=== PATIENT | female | born 1960 | race Caucasian/White ===

== ENCOUNTER 2023-05-15 19:17 | Emergency (ER) | payer BC, OTHER ==
[2023-05-15 19:41] LABS: APPEARANCE,URINE TURBID; BILIRUBIN,URINE NEGATIVE (NEGATIVE); COLOR,URINE YELLOW; GLUCOSE,URINE NEGATIVE (NEGATIVE); KETONES,URINE TRACE mg/dL (NEGATIVE); LEUKOCYTE ESTERASE,URINE SMALL (NEGATIVE); NITRITE,URINE NEGATIVE (NEGATIVE); OCCULT BLOOD,URINE MODERATE (NEGATIVE); PH,URINE 5.5 (5.0-9.0); PROTEIN,URINE NEGATIVE (NEGATIVE); UROBILINOGEN,URINE 0.2 E.U./dL (0.2-1.0)
[2023-05-15 19:54] LABS: BASOPHILS ABSOLUTE AUTO 0.02 K/uL (0.00-0.20); BASOPHILS PERCENT AUTO 0.2 % (0.0-2.0); EOSINOPHILS ABSOLUTE AUTO 0.01 K/uL (0.00-0.50); EOSINOPHILS PERCENT AUTO 0.1 % (0.0-5.0); HEMATOCRIT 36.8 % (34.0-46.0); HEMOGLOBIN 12.2 g/dL (11.7-15.5); LYMPHOCYTES ABSOLUTE AUTO 1.77 K/uL (0.50-3.50); LYMPHOCYTES PERCENT AUTO 14.7 % (10.0-50.0); MEAN CORPUSCULAR HEMOGLOBIN 29.7 pg (28.2-33.3); MEAN CORPUSCULAR HGB CONC 33.2 g/dL (31.7-36.0); MEAN CORPUSCULAR VOLUME 89.5 fL (84.0-98.0); MONOCYTES ABSOLUTE AUTO 0.93 K/uL (0.00-1.00); MONOCYTES PERCENT AUTO 7.7 % (2.0-14.0); NEUTROPHILS ABSOLUTE AUTO 9.28 K/uL (1.40-7.00); NEUTROPHILS PERCENT AUTO 77.3 % (45.0-80.0); PLATELET COUNT,PLT 288 K/uL (150-350); RED BLOOD CELL COUNT 4.11 M/uL (3.77-5.09); RED CELL DISTRIBUTION WIDTH 13.6 % (11.2-14.1)
[2023-05-15 20:00] LABS: EPITHELIAL CELLS,URINE MANY /LPF
[2023-05-15] MEDS ORDERED: Sodium Chloride 0.9% 1,000 ML IV ONE (20:05)
[2023-05-15] MEDS ORDERED: Sodium Chloride 0.9% 10 ML Syringe FLUSH PRN (20:05)
[2023-05-15] MEDS ORDERED: Ondansetron 4 MG/2 ML SDV IVPUSH ONE (20:05)
[2023-05-15] MEDS ORDERED: Morphine 2 MG/ML SYRINGE IVPUSH ONE ×2 (20:05→22:07)
[2023-05-15 20:09] LABS: ALANINE AMINOTRANSFERASE,ALT 28 U/L (12-78); ALBUMIN 3.6 g/dL (3.4-5.0); ALKALINE PHOSPHATASE 76 IU/L (46-116); ANION GAP 8.2 meq/L (7-15); ASPARTATE AMNIOTRANSFERASE,AST 18 U/L (15-37); BILIRUBIN TOTAL 0.6 mg/dL (0.2-1.0); BLOOD UREA NITROGEN,BUN 11 mg/dL (7-18); CALCIUM 8.8 mg/dL (8.5-10.1); CARBON DIOXIDE,CO2 27.8 mmol/L (21.0-32.0); CHLORIDE,CL 101 mmol/L (98-107); GLUCOSE RANDOM 133 mg/dL (70-99); POTASSIUM,K 3.8 mmol/L (3.5-5.1); PROTEIN TOTAL,TP 7.7 g/dL (6.4-8.2); SODIUM,NA 137 mmol/L (136-145)
[2023-05-15 20:12] LABS: ESTIMATED GFR 63 mL/min (>=60)
[2023-05-15] MEDS ORDERED: cefTRIAXone 2 GM Vial IVPUSH ONE (21:36)
[2023-05-15] MEDS ORDERED: metroNIDAZOLE/Normal Saline 500 MG in Premix Bag 1 BAG IV ONE (21:37)
[2023-05-15 22:16] LABS: CORONAVIRUS COVID-19 NAA NEGATIVE (NEGATIVE); INFLUENZA A NAA NEGATIVE (NEGATIVE); INFLUENZA B NAA NEGATIVE (NEGATIVE); RESPIRATORY SYNCYTIAL VIR NAA NEGATIVE (NEGATIVE)
== END 2023-05-15 22:31 ==
LOC: LL.ED 19:17
DX: K35.32 Acute appendicitis with perforation, localized peritonitis, and gangrene, without abscess (principal); Z90.710 Acquired absence of both cervix and uterus
CPT/HCPCS: 0241U; 36415; 74019; 74176; 80053; 81001; 83605; 85025; 96361; 96365; 96375; 96376; 99284; 99285-25; J0696; J1836; J2270; J2405; J7030

== ENCOUNTER 2023-05-24 12:51 | Emergency (ER) | payer BC ==
[2023-05-24] MEDS ORDERED: Sodium Chloride 0.9% 10 ML Syringe FLUSH PRN (13:28)
[2023-05-24] MEDS: Lactated Ringers 1,000 ML IV ONE (13:37)
[2023-05-24 13:46] LABS: BASOPHILS ABSOLUTE AUTO 0.03 K/uL (0.00-0.20); BASOPHILS PERCENT AUTO 0.2 % (0.0-2.0); EOSINOPHILS ABSOLUTE AUTO 0.03 K/uL (0.00-0.50); EOSINOPHILS PERCENT AUTO 0.2 % (0.0-5.0); HEMATOCRIT 34.4 % (34.0-46.0); HEMOGLOBIN 11.1 g/dL (11.7-15.5); LYMPHOCYTES ABSOLUTE AUTO 1.85 K/uL (0.50-3.50); LYMPHOCYTES PERCENT AUTO 9.6 % (10.0-50.0); MEAN CORPUSCULAR HEMOGLOBIN 29.4 pg (28.2-33.3); MEAN CORPUSCULAR HGB CONC 32.3 g/dL (31.7-36.0); MONOCYTES ABSOLUTE AUTO 1.53 K/uL (0.00-1.00); MONOCYTES PERCENT AUTO 7.9 % (2.0-14.0); NEUTROPHILS ABSOLUTE AUTO 15.88 K/uL (1.40-7.00); NEUTROPHILS PERCENT AUTO 82.1 % (45.0-80.0); PLATELET COUNT,PLT 432 K/uL (150-350); RED BLOOD CELL COUNT 3.78 M/uL (3.77-5.09); RED CELL DISTRIBUTION WIDTH 13.6 % (11.2-14.1); WHITE BLOOD CELL COUNT,WBC 19.3 K/uL (4.0-10.2)
[2023-05-24 13:52] LABS: INR 1.1 (0.9-1.1); PROTHROMBIN TIME 11.2 SEC (9.0-11.1)
[2023-05-24 14:08] LABS: LACTIC ACID 1.2 mmol/L (0.4-2.0)
[2023-05-24 14:16] LABS: ALBUMIN 2.9 g/dL (3.4-5.0); BILIRUBIN TOTAL 0.4 mg/dL (0.2-1.0); CALCIUM 8.2 mg/dL (8.5-10.1); CARBON DIOXIDE,CO2 28.4 mmol/L (21.0-32.0); CREATININE 1.04 mg/dL (0.51-1.17); EST CRCL DRUG DOSING (CG) 51.83 mL/min; POTASSIUM,K 3.4 mmol/L (3.5-5.1); PROTEIN TOTAL,TP 7.5 g/dL (6.4-8.2)
[2023-05-24 14:27] LABS: INFLUENZA A NAA NEGATIVE (NEGATIVE); INFLUENZA B NAA NEGATIVE (NEGATIVE); RESPIRATORY SYNCYTIAL VIR NAA NEGATIVE (NEGATIVE)
[2023-05-24 14:31] LABS: CORONAVIRUS COVID-19 NAA POSITIVE (NEGATIVE)
[2023-05-24] MEDS ORDERED: Lactated Ringers 1,000 ML IV ONE (14:31)
[2023-05-24] MEDS: Ketorolac 15 MG/ML SDV IVPUSH ONE (14:44)
[2023-05-24] MEDS: Prochlorperazine 10 MG/2 ML SDV IVPUSH ONE (14:50)
== END 2023-05-24 15:00 | disposition home or self-care (01) ==
LOC: LL.ED 12:51
DX: U07.1 COVID-19 (principal)
CPT/HCPCS: 0241U; 36415; 71046; 80053; 83605; 83880; 85025; 85610; 96361; 96374; 96375; 99285-25; J0780; J1885; J7120